=== PATIENT | male | born 1995 | race Caucasian/White ===

== ENCOUNTER 2023-01-14 17:26 | Inpatient (IN) | payer MEDICAID ==
[~2023-01-14] VITALS: Ht 177.8 cm; Wt 99.8 kg
[2023-01-14 18:01] VITALS: BP 148/80
--- NOTE | 2023-01-14 18:53 | NUR ---
PT C/O CHEST PAIN AND SOB X2 DAYS, BREATHING TACHYPNEIC AND TACHYCARDIC. IV INSERTED TO RIGHT AC #20 guage BLOOD DRAWN AND SENT TO LAB. PENDING FURTHER ORDERS.
[2023-01-14 19:10] LABS: BASOPHILS # (AUTO) 0.1 K/uL (0.00-0.22); BASOPHILS % (AUTO) 0.7 % (0.0-2.0); EOSINOPHILS % (AUTO) 0.3 % (0.0-4.0); HEMATOCRIT 37.7 % (36-52); HEMOGLOBIN 11.9 g/dL (12.0-18.0); LYMPHOCYTES # (AUTO) 1.5 K/uL (2.0-11.5); LYMPHOCYTES % (AUTO) 16.6 % (20.5-51.1); MEAN CORPUSCULAR HEMOGLOBIN 24 pg (27-31); MEAN CORPUSCULAR HGB CONC 32 g/dL (33-37); MONOCYTES # (AUTO) 1.1 K/uL (0.8-1.0); NEUTROPHILS # (AUTO) 6.4 K/uL (1.8-7.7); NEUTROPHILS % (AUTO) 70.4 % (42.2-75.2); PLATELET COUNT (AUTO) 281 K/uL (140-450); RED BLOOD CELL COUNT(AUTO) 4.89 MIL/uL (4.20-6.10); RED CELL DISTRIBUTION WIDTH 18.9 % (11.6-13.7); WHITE BLOOD COUNT (AUTO) 9.1 K/uL (4.8-10.8)
[2023-01-14 19:23] LABS: ALBUMIN 3.5 g/dL (3.4-5.0); ANION GAP 16.2 (8-16); CARBON DIOXIDE 20.3 mmol/L (21-32); CREATININE 1.1 mg/dL (0.6-1.3); POTASSIUM 4.5 mmol/L (3.5-5.1); TOTAL BILIRUBIN 1.9 mg/dL (0.0-1.0)
[2023-01-14] MEDS ORDERED: FUROSEMIDE 40 MG/4 ML VIAL IVP ONE (20:20)
--- NOTE | 2023-01-14 21:10 | NUR ---
Patient appears to be resting comfortably in bed. Vital Signs within normal limits. Respirations even and unlabored.
[2023-01-14] MEDS ORDERED: OMEP20EC11 PO (21:41)
[2023-01-14] MEDS ORDERED: FURO-570 PO (21:42)
[2023-01-14] MEDS ORDERED: LOSA100T2 PO (21:44)
[2023-01-14] MEDS ORDERED: METO-748 PO (21:44)
[2023-01-14] MEDS ORDERED: AZITHROMYCIN 500 MG in DEXTROSE 5% 250 ML IV ONE (21:45)
[2023-01-14] MEDS ORDERED: KEP500 PO (21:46)
--- NOTE | 2023-01-14 21:47 | NUR ---
jeffery swab to lab
[2023-01-14] MEDS ORDERED: AZITHROMYCIN 500 MG INJ VIAL IV ONE (22:53)
[2023-01-14] MEDS ORDERED: cefTRIAXone 1,000 MG VIAL ONE (22:55)
[2023-01-14 23:45] LABS: APPEARANCE,URINE CLEAR (CLEAR); BILIRUBIN,URINE NEGATIVE (NEGATIVE); BLOOD, URINE NEGATIVE (NEGATIVE); COLOR,URINE YELLOW (YELLOW); LEUKOCYTE ESTERASE ,URINE NEGATIVE (NEGATIVE); NITRITE, URINE NEGATIVE (NEGATIVE); UGLUCOSE NEGATIVE (NEGATIVE)
[2023-01-15] LABS: BARBITURATE, URINE NEGATIVE ng/ml (NEG <=200); BENZODIAZEPINE, URINE NEGATIVE ng/mL (NEG <=200); CANNABINOID, URINE NEGATIVE ng/mL (NEG <=50); COCAINE, URINE NEGATIVE ng/mL (NEG <=300); OPIATE, URINE NEGATIVE ng/mL (NEG <=2000); PHENCYCLIDINE SCREEN,URINE NEGATIVE ng/mL (NEG <=25)
--- NOTE | 2023-01-15 02:00 | NUR ---
Patient appears to be resting comfortably in bed. Vital Signs within normal limits. Respirations even and unlabored.
[2023-01-15] MEDS ORDERED: MORPHINE SULFATE 10 MG/ML VIAL IVP PRN (02:30)
[2023-01-15] MEDS ORDERED: MORPHINE SULFATE 2 MG/ML SYR IVP PRN ×2 (03:20→07:10)
--- NOTE | 2023-01-15 05:50 | NUR ---
C/O PAIN , MEDICATED ORDERED
--- NOTE | 2023-01-15 06:01 | NUR ---
MADE AWARE OF PT BEING IN A-FIB, ORDERED AN EKG. EKG READS A-FIB AT 123, MADE AWARE THAT ON OUR CREDIT CHECKER PT REACHES UP TO 160S WITH CHEST PAIN AND SOB. ORDERED 2 STANDING ORDERS FOR CARDIZEM 10MG IVP FOR AFIB. STATES IF BOTH DOSES DO NOT WORK, START A CARDIZEM DRIP AND UPGRADE TO ICU. ORDERS CARRIED OUT.
[2023-01-15] MEDS ORDERED: DILTIAZEM 25 MG/5 ML VIAL IVP ONE ×2 (06:05)
[2023-01-15] MEDS ORDERED: ALBUTEROL 0.083% 2.5 MG/3 ML NEBU INH PRN (07:05)
[2023-01-15] MEDS ORDERED: ONDANSETRON 4 MG/2 ML VIAL IVP PRN (07:10)
[2023-01-15] MEDS ORDERED: DOCUSATE SODIUM 100 MG GELCAP PO PRN (07:10)
[2023-01-15] MEDS ORDERED: ZOLPIDEM 10 MG TAB PO PRN (07:10)
[2023-01-15] MEDS ORDERED: MAG SULF 2000 MG/WATER PREMIX 50 ML IV PRN (07:10)
[2023-01-15] MEDS ORDERED: ACETAMINOPHEN 325 MG TAB PO PRN (07:10)
[2023-01-15] MEDS ORDERED: LORazepam 2 MG/ML VIAL IVP PRN (07:10)
[2023-01-15] MEDS ORDERED: POTASSIUM CHLORIDE 10 MEQ TABER PO PRN (07:10)
--- NOTE | 2023-01-15 07:30 | NUR ---
Pt asleep, resp rate 30's, SpO2 98-100% on O2 @ 2L nc. Afib 105 on the monitor
--- NOTE | 2023-01-15 08:30 | NUR ---
bedside echocardiogram in progress
[2023-01-15] MEDS: FUROSEMIDE 40 MG/4 ML VIAL IVP SCH ×2 (09:00→16:40)
--- NOTE | 2023-01-15 09:23 | NUR ---
PATIENT HAS BEEN SCREENED AND CATEGORIZED MODERATE NUTRITION RISK. PATIENT WILL BE SEEN WITHIN 3-5 DAYS OF ADMISSION. REVIEWED BY ZACHARIAH OLIVEROS RD
[2023-01-15] MEDS ORDERED: CRUSHER, PILL MC ONE (11:56)
[2023-01-15] MEDS: levETIRAcetam 500 MG TAB PO SCH ×2 (12:00→21:24)
[2023-01-15] MEDS: LOSARTAN 50 MG TAB PO SCH (12:02)
[2023-01-15] MEDS ORDERED: PIPERACILLIN/TAZOBACTAM 3.375 GM VIAL IV ONE ×2 (12:17→21:20)
[2023-01-15] MEDS: PIPERACILLIN/TAZOBACTAM 3.375 GM in DEXTROSE 5% 50 ML IV SCH ×2 (12:36→21:24)
--- NOTE | 2023-01-15 18:52 | NUR ---
pt ate 100% of dinner
[2023-01-15 20:45] VITALS: BP 106/70
--- NOTE | 2023-01-15 20:45 | NUR ---
PT ADMITTED AND ORIENTED TO ROOM 126a, FRON ED WITH DX OF CHF AND pna, a/O X4, ORIENTED TO ROOM AND CALL SYSTEM
--- NOTE | 2023-01-15 21:00 | NUR ---
PT ADMITTED FROM ED 01/15/23 AT 20:45, WITH DX OF chf EXACERBATION AND PNA, A/O X4, ON 02 3 L/MIN VIA NC. PT ORIENTED TO ROOM AND CALL SYTEM, AWARE OF ALL ORDERS . CONT. WITH PLAN OF CARE
--- NOTE | 2023-01-15 21:52 | NUR ---
Patient will be admitted to care of EXECERBATION OF CHF AND PNA. Admited to TELEMETY . Will go to room 126. Belongings list completed. Report to LOUISE.
[2023-01-16] VITALS: BP 105/58
[2023-01-16 04:00] VITALS: BP 122/68
[2023-01-16] MEDS ORDERED: PIPERACILLIN/TAZOBACTAM 3.375 GM VIAL IV ONE (05:45)
[2023-01-16] MEDS: PIPERACILLIN/TAZOBACTAM 3.375 GM in DEXTROSE 5% 50 ML IV SCH ×3 (05:49→21:22)
[2023-01-16 06:23] LABS: ANION GAP 18.4 (8-16); CARBON DIOXIDE 23.7 mmol/L (21-32); CREATININE 1.2 mg/dL (0.6-1.3); POTASSIUM 4.1 mmol/L (3.5-5.1)
[2023-01-16 06:49] LABS: BASOPHILS # (AUTO) 0.1 K/uL (0.00-0.22); BASOPHILS % (AUTO) 1.5 % (0.0-2.0); EOSINOPHILS # (AUTO) 0.4 K/uL (0-0.4); EOSINOPHILS % (AUTO) 5.5 % (0.0-4.0); HEMATOCRIT 37.5 % (36-52); HEMOGLOBIN 11.7 g/dL (12.0-18.0); LYMPHOCYTES # (AUTO) 1.8 K/uL (2.0-11.5); LYMPHOCYTES % (AUTO) 24.1 % (20.5-51.1); MEAN CORPUSCULAR HEMOGLOBIN 24 pg (27-31); MEAN CORPUSCULAR HGB CONC 31 g/dL (33-37); MEAN CORPUSCULAR VOLUME 76.3 fL (80-94); MONOCYTES # (AUTO) 0.9 K/uL (0.8-1.0); MONOCYTES % (AUTO) 11.5 % (1.7-9.3); NEUTROPHILS # (AUTO) 4.4 K/uL (1.8-7.7); NEUTROPHILS % (AUTO) 57.4 % (42.2-75.2); PLATELET COUNT (AUTO) 272 K/uL (140-450); RED BLOOD CELL COUNT(AUTO) 4.91 MIL/uL (4.20-6.10); RED CELL DISTRIBUTION WIDTH 19.2 % (11.6-13.7); WHITE BLOOD COUNT (AUTO) 7.7 K/uL (4.8-10.8)
--- NOTE | 2023-01-16 07:00 | NUR ---
CRITICAL VALUE RESULT, NA LEVEL 156 , REPORTED TO DR RODRÍGUEZ DESIGN ARCHITECT. NO NEW ORDERS AT THIS TIME. REPORT TO INCOMING NURSE.
--- NOTE | 2023-01-16 07:12 | NUR ---
ASSUMED CONTINUITY OF CARE. INITIAL ASSESSMENT DONE. KEEP COMFORTABLE ON BED. SEIZURE AND FALL PRECAUTION APPLIED. CALL LIGHT WITHIN REACH.
[2023-01-16 08:00] VITALS: BP 107/78
[2023-01-16] MEDS: levETIRAcetam 500 MG TAB PO SCH ×2 (09:09→21:22)
[2023-01-16] MEDS: LOSARTAN 50 MG TAB PO SCH (09:09)
[2023-01-16] MEDS: FUROSEMIDE 40 MG/4 ML VIAL IVP SCH ×2 (09:24→18:05)
[2023-01-16 12:00] VITALS: BP 101/68
[2023-01-16 16:00] VITALS: BP 116/69
--- NOTE | 2023-01-16 19:19 | NUR ---
BEDSIDE REPORT GIVEN TO STORMY HEBERT. IN STABLE CONDITION.
[2023-01-16 20:00] VITALS: BP 112/69
--- NOTE | 2023-01-16 20:00 | NUR ---
NURSE NOTES REPORT OBTAINED FROM [facility] NURSE LITA MARTINEZ AND THIS NURSE ASSUMED CARE OF PATIENT. VSS. NO C/O PAIN OR DISCOMFORT. VOIDED IN URINAL. TELE MONITOR WITH UNCONTROLLED ATRIAL FIB, BBB- BPM 124.
[2023-01-16] MEDS: APIXABAN 2.5 MG TAB PO SCH (21:24)
[2023-01-17] VITALS: BP 98/68
--- NOTE | 2023-01-17 | NUR ---
NURSE NOTES VSS, AFEB. NO C/O PAIN OR DISCOMFORT. TELE WITH UNCONTROLLED ATRIAL FIB- BBB. BPM- 132. QRS- .12-.14
[2023-01-17 04:00] VITALS: BP 87/61
--- NOTE | 2023-01-17 04:00 | NUR ---
NURSE NOTES VSS. AFEB. TELE WITH CONTROLLED AFIB 97. NO C/O PAIN OR DISCOMFORT. PATIETN ASKED FOR FOOD NUMEROUS TIMES. VOIDS WELL IN URINAL.
[2023-01-17] MEDS: PIPERACILLIN/TAZOBACTAM 3.375 GM in DEXTROSE 5% 50 ML IV SCH ×2 (04:38→14:01)
[2023-01-17 06:27] LABS: BASOPHILS # (AUTO) 0.1 K/uL (0.00-0.22); BASOPHILS % (AUTO) 1.4 % (0.0-2.0); EOSINOPHILS # (AUTO) 0.4 K/uL (0-0.4); EOSINOPHILS % (AUTO) 5.4 % (0.0-4.0); HEMOGLOBIN 12.7 g/dL (12.0-18.0); LYMPHOCYTES # (AUTO) 1.5 K/uL (2.0-11.5); LYMPHOCYTES % (AUTO) 22.6 % (20.5-51.1); MEAN CORPUSCULAR HEMOGLOBIN 24 pg (27-31); MEAN CORPUSCULAR HGB CONC 32 g/dL (33-37); MEAN CORPUSCULAR VOLUME 75.4 fL (80-94); MONOCYTES # (AUTO) 0.8 K/uL (0.8-1.0); MONOCYTES % (AUTO) 12.5 % (1.7-9.3); NEUTROPHILS # (AUTO) 3.8 K/uL (1.8-7.7); NEUTROPHILS % (AUTO) 58.1 % (42.2-75.2); PLATELET COUNT (AUTO) 339 K/uL (140-450); RED BLOOD CELL COUNT(AUTO) 5.31 MIL/uL (4.20-6.10); RED CELL DISTRIBUTION WIDTH 18.5 % (11.6-13.7); WHITE BLOOD COUNT (AUTO) 6.6 K/uL (4.8-10.8)
[2023-01-17 06:42] LABS: ANION GAP 12.5 (8-16); CREATININE 1.2 mg/dL (0.6-1.3); POTASSIUM 3.5 mmol/L (3.5-5.1)
--- NOTE | 2023-01-17 07:30 | NUR ---
NURSE REPORT REPORT GIVEN TO [facility] NURSE MCKAY TO ASSUME CARE OF PATIENT. ALL QUESTIONS ANSWERED. STORMY HEATON RN
[2023-01-17 08:00] VITALS: BP 115/69
[2023-01-17] MEDS ORDERED: METOPROLOL SUCCINATE 50 MG TABER PO SCH (09:00)
[2023-01-17] MEDS: FUROSEMIDE 40 MG/4 ML VIAL IVP SCH (10:13)
[2023-01-17] MEDS: levETIRAcetam 500 MG TAB PO SCH (10:14)
[2023-01-17] MEDS: LOSARTAN 50 MG TAB PO SCH (10:14)
[2023-01-17] MEDS: APIXABAN 2.5 MG TAB PO SCH (10:17)
[2023-01-17 12:00] VITALS: BP 112/85
[2023-01-17] MEDS ORDERED: ALBU0.0912 IH (17:21)
[2023-01-17] MEDS ORDERED: SPIMDI INH (17:24)
[2023-01-17 17:53] VITALS: BP 100/70
--- NOTE | 2023-01-17 18:47 | NUR ---
patient dc home, provided education regarding disease process, symptom mgt and when to seek medical attention, iv in rfa dc with cath intact, patient taken to lobby by rn and transported home via private auto
--- NOTE | 2023-01-21 13:15 | NUR ---
DC PLANNING: RECEIVED A CALL FROM EVARISTO CROFT [phone] SPOKE WITH CLARA HANDY REQUESTING TO PUT HER NAME ON THE DC PLANER TO FOLLOW UP . PER CLARA SHE MADE F/U APPOINTMENT WITH PT'S PCP.
== END 2023-01-17 18:35 | disposition home or self-care (01) | DRG 720 ==
LOC: MED 17:26 → MTU 01-15 02:32 → MMU 01-15 19:46
PROVIDERS: ADMIT Family Medicine; ATTEND Family Medicine
DX: A41.9 Sepsis, unspecified organism (principal); J96.00 Acute respiratory failure, unspecified whether with hypoxia or hypercapnia; I50.43 Acute on chronic combined systolic (congestive) and diastolic (congestive) heart failure; J18.9 Pneumonia, unspecified organism; I42.0 Dilated cardiomyopathy; I11.0 Hypertensive heart disease with heart failure; R56.9 Unspecified convulsions; I48.91 Unspecified atrial fibrillation; F15.90 Other stimulant use, unspecified, uncomplicated; Z20.822 Contact with and (suspected) exposure to COVID-19
CPT/HCPCS: 36415; 71045; 80048; 80053; 80305; 81003; 83735; 83880; 84484; 85025; 87040; 87081; 93005; 96365; 96368; 96375; 99285; G0482; J0456; J0696; J1940; J2060; J2270; J2543; J3475; J3490; J7060; Q0092

== ENCOUNTER 2023-03-04 07:42 | Inpatient (IN) | payer MEDICAID ==
[~2023-03-04] VITALS: Ht 188 cm; Wt 113.4 kg
[~2023-03-04 07:42] MED LIST: ALBU0.0912 IH; FURO-570 PO; KEP500 PO; LOSA100T2 PO; METO-748 PO; OMEP20EC11 PO; SPIMDI INH
--- NOTE | 2023-03-04 07:55 | NUR ---
Patient ambulated to bed 3.
[2023-03-04 07:56] VITALS: BP 120/80
[2023-03-04] MEDS ORDERED: METOPROLOL 5 MG/5 ML VIAL IVP ONE ×2 (08:20→09:30)
[2023-03-04 08:43] LABS: BASOPHILS # (AUTO) 0.1 K/uL (0.00-0.22); BASOPHILS % (AUTO) 1.2 % (0.0-2.0); EOSINOPHILS # (AUTO) 0.1 K/uL (0-0.4); EOSINOPHILS % (AUTO) 1.9 % (0.0-4.0); HEMATOCRIT 36.5 % (36-52); HEMOGLOBIN 11.3 g/dL (12.0-18.0); LYMPHOCYTES # (AUTO) 1.5 K/uL (2.0-11.5); LYMPHOCYTES % (AUTO) 21.2 % (20.5-51.1); MEAN CORPUSCULAR HEMOGLOBIN 23 pg (27-31); MEAN CORPUSCULAR HGB CONC 31 g/dL (33-37); MEAN CORPUSCULAR VOLUME 74.2 fL (80-94); MONOCYTES # (AUTO) 0.7 K/uL (0.8-1.0); MONOCYTES % (AUTO) 9.7 % (1.7-9.3); NEUTROPHILS # (AUTO) 4.5 K/uL (1.8-7.7); PLATELET COUNT (AUTO) 283 K/uL (140-450); RED BLOOD CELL COUNT(AUTO) 4.92 MIL/uL (4.20-6.10); RED CELL DISTRIBUTION WIDTH 21.8 % (11.6-13.7); WHITE BLOOD COUNT (AUTO) 6.9 K/uL (4.8-10.8)
[2023-03-04 09:05] LABS: ALBUMIN 3.2 g/dL (3.4-5.0); ANION GAP 15.4 (8-16); CARBON DIOXIDE 22.8 mmol/L (21-32); CREATININE 1.2 mg/dL (0.6-1.3); POTASSIUM 3.2 mmol/L (3.5-5.1); TOTAL BILIRUBIN 1.7 mg/dL (0.0-1.0)
[2023-03-04 09:08] LABS: THYROID STIMULATING HORMONE 4.84 uIU/mL (0.34-3.74)
[2023-03-04] MEDS ORDERED: POTASSIUM CHLORIDE 10 MEQ TABER PO ONE (09:55)
[2023-03-04] MEDS ORDERED: FUROSEMIDE 100 MG/10 ML VIAL IVP ONE (09:55)
--- NOTE | 2023-03-04 10:00 | NUR ---
IN BED STILL A LITTLE RESTLESS, STILL WITH LEG PAIN FROM SWELLING, FAST HEART RATE IMPROVING.
[2023-03-04 10:52] LABS: BARBITURATE, URINE NEGATIVE ng/ml (NEG <=200); BENZODIAZEPINE, URINE NEGATIVE ng/mL (NEG <=200); CANNABINOID, URINE NEGATIVE ng/mL (NEG <=50); COCAINE, URINE NEGATIVE ng/mL (NEG <=300); OPIATE, URINE NEGATIVE ng/mL (NEG <=2000); PHENCYCLIDINE SCREEN,URINE NEGATIVE ng/mL (NEG <=25)
[2023-03-04] MEDS ORDERED: DOCUSATE SODIUM 100 MG GELCAP PO PRN (11:10)
[2023-03-04] MEDS ORDERED: POTASSIUM CHLORIDE 10 MEQ TABER PO PRN (11:10)
[2023-03-04] MEDS ORDERED: ACETAMINOPHEN 325 MG TAB PO PRN (11:10)
[2023-03-04] MEDS ORDERED: guaiFENesin DM 200/20 MG-10 ML 10 ML UDC PO PRN (11:10)
[2023-03-04] MEDS ORDERED: ONDANSETRON 4 MG/2 ML VIAL IM/IVP PRN (11:10)
[2023-03-04] MEDS: levETIRAcetam 500 MG TAB PO SCH ×2 (11:20→21:00)
[2023-03-04] MEDS ORDERED: LOSARTAN 50 MG TAB PO SCH (11:20)
[2023-03-04] MEDS ORDERED: METOPROLOL SUCCINATE 100 MG PO SCH (11:20)
[2023-03-04 11:50] LABS: CHOL/HDL RATIO 4.6 (1-4.5); FREE T4 (FREE THYROXINE) 1.31 ng/dL (0.76-1.46); THYROID STIMULATING HORMONE 3.93 uIU/mL (0.34-3.74)
[2023-03-04 12:02] LABS: MAGNESIUM 1.7 mg/dL (1.8-2.4); PHOSPHORUS 4.7 mg/dL (2.5-4.9)
[2023-03-04] MEDS: METOPROLOL SUCCINATE 50 MG TABER PO SCH (12:25)
--- NOTE | 2023-03-04 12:30 | NUR ---
DIURESING PER URINAL POST MEDS. ABLE TO TOLERATE MID FOWLERS IN BED.
--- NOTE | 2023-03-04 13:22 | NUR ---
EATING PER LUNCH MEAL TRAY, TOLERATING WITHOUT SOB. "I BROUGHT SOME SNACKS FOR MYSELF TOO"
--- NOTE | 2023-03-04 13:58 | NUR ---
Patient will be admitted to care of DR CAVAZOS . Admited to TELE. Will go to room 111. Belongings list completed. Report to
[2023-03-04 14:00] VITALS: BP 121/80
--- NOTE | 2023-03-04 14:00 | NUR ---
RECEIVED REPORT FROM ER NURSE FOR CONTINUITY OF CARE. PT WAS STABLE UPON TRANSPORT ON A GURNEY. PT IS A&OX4, SKIN INTACT, ON 1L NC STATING AT 98%, AND WALKS WITH A WALKER TO AND FROM THE RESTROOM. PT HAS A LIFE VEST DEFIBRILLATOR ON. PT HAS A 20G IN HIS R FOREARM THAT IS PATENT AND INTACT. PT IS ON A CARDIAC DIET. ALL SAFETY MEASURES IN PLACE INCLUDING BED IN LOW POSITION AND CALL LIGHT WITHIN REACH. PT MONITORING AND CARE RESUMED.
[2023-03-04 16:00] VITALS: BP 119/73
--- NOTE | 2023-03-04 19:31 | NUR ---
ENDORSED PTS TO TRADE ECONOMIST NURSE FOR CONTINUITY OF CARE. PT STABLE AT THIS TIME.
--- NOTE | 2023-03-04 19:32 | NUR ---
RECEIVED SHIFT REPORT FOR CONTINUITY OF CARE FROM SUSSY CAMPOS, PATIENT WAS COMPLAINING OF SOB. OXYGEN SATURATION WAS WITHIN NORMAL RANGE. RT WAS CALLED FOR POSSIBLE TREATMENT. MD WAS NOTIFIED AND NEW ORDERS FOR MORPHINE. PATIENT WAS GIVEN NORCO TO RELIEVE THE PAIN. NURSING WILL MONITOR FOR EFFECTIVENESS. PATIENT WAS GIVEN CALL LIGHT WITHIN REACH. SIDE RAILS UP X 2. [email or web address]
[2023-03-04] MEDS: HYDROcodone/APAP 7.5/325 MG 1 TAB PO PRN (19:43)
[2023-03-04 20:00] VITALS: BP 121/75
--- NOTE | 2023-03-04 20:00 | NUR ---
Patient's Plan of Care was discussed and reviewed with OSTRICH FARMER: GRAY LEÓN
[2023-03-04] MEDS: FUROSEMIDE 40 MG/4 ML VIAL IVP SCH (21:40)
--- NOTE | 2023-03-04 22:25 | NUR ---
PATIENT NOTED IN BED ASLEEP WITH HEAD OF BED ELEVATED. AFTER NORCO WAS GIVEN PATIENT WAS AVLE TO CALM DOWN AND SPEAK WITH NURSING. NURSING EDUCATED PAIN NOT TO EAT ITEMS THAT CAN PRODUCE MUCUS BECAUSE HIS COMPLAINT WAS CHEST PAIN BUT NURSING HEARD THE MUCUS IN THE THROAT AND MOUTH. ALL NEEDS MET AT THIS TIME. SIDE RAILS UP CALL LIGHT WITHIN REACH. [email or web address]
[2023-03-05] VITALS: BP 103/53
--- NOTE | 2023-03-05 00:05 | NUR ---
PATIENT NOTED WITH MASK FOR BREATHING AND OXYGEN INCREASED TO 7 LITERS. PATIENT DESATURATED TO 86%. RT WAS CALLED AND RECOMMEND THE MASK BECAUSE PATIENT BREATHS WITH HIS MOUTH OPEN. PATIENT IS ON CONTINUOUS PULSE OX FOR OXYGEN SATURATION. [email or web address]
[2023-03-05] MEDS ORDERED: DIGOXIN 0.25 MG/ML AMP IV SCH (01:25)
--- NOTE | 2023-03-05 02:51 | NUR ---
SPOKE WITH [facility] TO VERIFY THE MEDICATION FOR NURSING TO GIVE. [email or web address]
--- NOTE | 2023-03-05 03:12 | NUR ---
UNABLE TO GIVE DIGOXIN D/T PATIENT'S BLOOD PRESSURE AT 0000 WAS NOTED AT 103/53 HR OF 86. CURRENTLY BLOOD PRESSURE WAS NOTED AT 107/68 HR 78. [email or web address]
[2023-03-05 04:00] VITALS: BP 124/71
[2023-03-05 06:51] LABS: BASOPHILS # (AUTO) 0.1 K/uL (0.00-0.22); BASOPHILS % (AUTO) 1.8 % (0.0-2.0); EOSINOPHILS # (AUTO) 0.1 K/uL (0-0.4); EOSINOPHILS % (AUTO) 2.3 % (0.0-4.0); HEMATOCRIT 38.7 % (36-52); LYMPHOCYTES % (AUTO) 31.5 % (20.5-51.1); MEAN CORPUSCULAR HEMOGLOBIN 23 pg (27-31); MEAN CORPUSCULAR HGB CONC 31 g/dL (33-37); MEAN CORPUSCULAR VOLUME 74.6 fL (80-94); MONOCYTES # (AUTO) 0.7 K/uL (0.8-1.0); MONOCYTES % (AUTO) 11.2 % (1.7-9.3); NEUTROPHILS # (AUTO) 3.4 K/uL (1.8-7.7); NEUTROPHILS % (AUTO) 53.2 % (42.2-75.2); PLATELET COUNT (AUTO) 293 K/uL (140-450); RED BLOOD CELL COUNT(AUTO) 5.19 MIL/uL (4.20-6.10); RED CELL DISTRIBUTION WIDTH 21.5 % (11.6-13.7); WHITE BLOOD COUNT (AUTO) 6.4 K/uL (4.8-10.8)
[2023-03-05 06:55] LABS: CARBON DIOXIDE 25.6 mmol/L (21-32); CREATININE 1.3 mg/dL (0.6-1.3); POTASSIUM 3.6 mmol/L (3.5-5.1)
--- NOTE | 2023-03-05 07:10 | NUR ---
RECEIVED REPORT FROM NECK FITTER NURSE FOR CONTINUITY OF CARE. PT STABLE AT THIS TIME.
--- NOTE | 2023-03-05 07:24 | NUR ---
ENDORSE PATIENT CARE TO SUSSY RN FOR CONTINUITY OF CARE, PATIENT WAS STABLE AT CHANGE OF SHIFT. [email or web address]
[2023-03-05 08:00] VITALS: BP 110/71
[2023-03-05 08:07] LABS: T4 (THYROXINE) 6.6 ug/dL (4.5-12.0)
--- NOTE | 2023-03-05 09:29 | NUR ---
PATIENT HAS BEEN SCREENED AND CATEGORIZED MODERATE NUTRITION RISK. PATIENT WILL BE SEEN WITHIN 3-5 DAYS OF ADMISSION. ZACHARIAH OLIVEROS RD
[2023-03-05] MEDS: FUROSEMIDE 40 MG/4 ML VIAL IVP SCH ×2 (09:31→21:00)
[2023-03-05] MEDS: PANTOPRAZOLE 40 MG TABEC PO SCH (09:32)
[2023-03-05] MEDS: levETIRAcetam 500 MG TAB PO SCH ×2 (09:32→21:28)
[2023-03-05] MEDS: LOSARTAN 25 MG TAB PO SCH (09:32)
[2023-03-05] MEDS: METOPROLOL SUCCINATE 50 MG TABER PO SCH (09:32)
[2023-03-05] MEDS: APIXABAN 2.5 MG TAB PO SCH ×2 (09:33→21:28)
--- NOTE | 2023-03-05 10:52 | NUR ---
dc planning MET WITH PT AT BEDSIDE TO COMPLETE ASSESSMENT, HOWEVER, PT STRUGGLED TO STAY AWAKE LONG ENOUGH TO COMPLETE ASSESSMENT. PT PROVIDED WITH PERMISSION TO GATHER COLLAT INFO FROM PTS MOTHER , SANA. PT CONFIRMED TELEPHONE NUMBER. OUTREACHED TO PTS MOTHER SANA, HOWEVER NO ANSWER. MESSAGE WAS LEFT REQUESTING A RETURN PHONE CALL, CONTACT INFO LEFT ON VM. Addendum: 03/08/23 at 1203 by Rashmi MACHADO SECOND ATTEMPT MADE TO COMPLETE ASSESSMENT HOWEVER, PT IN AND OUT OF SLEEP AND STRUGGLES TO COMPLETE ASSESSMENT. OUTREACHED TO PTS MOTHER HOWEVER, NO ANSWER.
[2023-03-05 11:13] LABS: APPEARANCE,URINE CLEAR (CLEAR); BILIRUBIN,URINE NEGATIVE (NEGATIVE); BLOOD, URINE NEGATIVE (NEGATIVE); COLOR,URINE YELLOW (YELLOW); LEUKOCYTE ESTERASE ,URINE NEGATIVE (NEGATIVE); NITRITE, URINE NEGATIVE (NEGATIVE); UGLUCOSE NEGATIVE (NEGATIVE)
--- NOTE | 2023-03-05 11:45 | NUR ---
ENTERED PTS ROOM TO HIS MASK NOT ON HIS FACE AND HIM STATING AT 78%. REPLACED MASK AND PT INCREASE QUICKLY TO 97%.
[2023-03-05 12:00] VITALS: BP 109/73
[2023-03-05] MEDS: HYDROcodone/APAP 7.5/325 MG 1 TAB PO PRN (12:16)
[2023-03-05 16:00] VITALS: BP 117/74
--- NOTE | 2023-03-05 16:45 | NUR ---
PASSED BY PTS ROOM TO HIM STANDING WALKING BACK FROM THE BATHROOM AND I ASKED IF HE WAS OKAY; PT STATED THAT HE NEEDED HELP GETTING BACK INTO BED. I ASSISTED PT BACK TO HIS BED AND BACK ON O2. I LOWERED THE HEAD OF THE BED SO HE COULD LAY DOWN AND GET COMFORTABLE. PT STATING AT 91%.
--- NOTE | 2023-03-05 19:29 | NUR ---
ENDORSED PTS TO MATTRESS AND BOXSPRINGS SUPERVISOR NURSE FOR CONTINUITY OF CARE. PT STABLE AT THIS TIME.
--- NOTE | 2023-03-05 19:30 | NUR ---
RECEIVED ENDORSEMENT FROM SUSSY CAMPOS, PATIENT WAS ASLEEP AND STABLE DURING SHIFT REPORT. PATIENT WAS ON CONTINUOUS OXYGEN MONITORING AND AT 100% WITH MASK AT 10 LITERS. NO S/S OF PAIN/DIS COMFORT. NO S/S OF RESPIRATORY DISTRESS. ALL NEEDS MET. SIDE RAILS UP X 2. CALL LIGHT WITHIN REACH [email or web address]
[2023-03-05 20:00] VITALS: BP 126/74
[2023-03-05] MEDS: ZOLPIDEM 5 MG TAB PO PRN (22:54)
--- NOTE | 2023-03-05 23:02 | NUR ---
Patient's Plan of Care was discussed and reviewed with BREWING DIRECTOR: MORENO
--- NOTE | 2023-03-05 23:21 | NUR ---
PATIENT REQUESTED SLEEPING PILL TO SLEEP. NURSING GAVE AND INEFFECTIVE BECAUSE PATIENT IS COMPLAINING OF PAIN AND YELLS AND GRUNTS. OXYGEN SATURATION REMAIN OVER 100%. NURSING WILL TAKE VITAL SIGNS AT MIDNIGHT TO GIVE PAIN MAEDICATION IF PATIENT IS WITHIN RANGE. [email or web address]
--- NOTE | 2023-03-05 23:49 | NUR ---
COVERING RN WAS INFORMED OF PATIENTS'S BLOOD PRESSURE NOTED AT 129/89 AND HEART 70 WITH 96%. PAIN MEDICATION WAS GIVEN. [email or web address]
[2023-03-05] MEDS: MORPHINE SULFATE 2 MG/ML SYR IVP PRN (23:51)
[2023-03-06] VITALS: BP 129/89
--- NOTE | 2023-03-06 00:25 | NUR ---
PATIENT NOTED IN BE ASLEEP. SIDE RAILS UP AND CALL LIGHT WITHIN REACH FOR ALL ASSISTANCE. NO NOTED S/S OF PAIN/DISCOMFORT. NO NOTED S/S OF RESPIRATORY DISTRESS. [email or web address]
--- NOTE | 2023-03-06 02:45 | NUR ---
PATIENT NOTED IN BE ASLEEP. PRN NOTED FROM MIDNIGHT EFFECTIVE AND NO NOTED SOFIE EFFECTS. SIDE RAILS UP AND CALL LIGHT WITHIN REACH FOR ALL ASSISTANCE. NO NOTED S/S OF PAIN/DISCOMFORT. NO NOTED S/S OF RESPIRATORY DISTRESS. [email or web address]
[2023-03-06 04:00] VITALS: BP 108/67
[2023-03-06 06:20] LABS: BASOPHILS # (AUTO) 0.1 K/uL (0.00-0.22); BASOPHILS % (AUTO) 0.8 % (0.0-2.0); EOSINOPHILS % (AUTO) 0.3 % (0.0-4.0); HEMATOCRIT 37.1 % (36-52); HEMOGLOBIN 11.5 g/dL (12.0-18.0); LYMPHOCYTES # (AUTO) 1.6 K/uL (2.0-11.5); LYMPHOCYTES % (AUTO) 20.8 % (20.5-51.1); MEAN CORPUSCULAR HEMOGLOBIN 23 pg (27-31); MEAN CORPUSCULAR HGB CONC 31 g/dL (33-37); MEAN CORPUSCULAR VOLUME 73.8 fL (80-94); MONOCYTES # (AUTO) 0.9 K/uL (0.8-1.0); MONOCYTES % (AUTO) 12.2 % (1.7-9.3); NEUTROPHILS % (AUTO) 65.9 % (42.2-75.2); PLATELET COUNT (AUTO) 287 K/uL (140-450); RED BLOOD CELL COUNT(AUTO) 5.03 MIL/uL (4.20-6.10); RED CELL DISTRIBUTION WIDTH 21.5 % (11.6-13.7); WHITE BLOOD COUNT (AUTO) 7.7 K/uL (4.8-10.8)
[2023-03-06 06:45] LABS: ANION GAP 14.3 (8-16); CARBON DIOXIDE 24.9 mmol/L (21-32); CREATININE 1.3 mg/dL (0.6-1.3); POTASSIUM 4.2 mmol/L (3.5-5.1)
--- NOTE | 2023-03-06 07:25 | NUR ---
ENDORSED PATIENT TO ESTRADA RN (REGISTRY) FOR CONTINUITY OF CARE. PATIENT WAS STABLE DURING SHIFT CHANGE. [email or web address]
[2023-03-06 08:00] VITALS: BP 98/62
--- NOTE | 2023-03-06 08:00 | NUR ---
pt A/Ox4,sleeping well in bed,afib hr 90-100,BP decreased to 98/62 needs attended,call light & personal items within pt reach safety maintained.
[2023-03-06] MEDS: LOSARTAN 25 MG TAB PO SCH (09:00)
[2023-03-06] MEDS: PANTOPRAZOLE 40 MG TABEC PO SCH (09:44)
[2023-03-06] MEDS: APIXABAN 2.5 MG TAB PO SCH ×2 (09:44→20:29)
[2023-03-06] MEDS: levETIRAcetam 500 MG TAB PO SCH ×2 (09:45→20:32)
[2023-03-06 12:00] VITALS: BP 115/78
--- NOTE | 2023-03-06 12:00 | NUR ---
pt keeps taking off O2 mask,sat 88% without O2 on,applied O2 2L/NC sat up to 93%,hourly rounds made,safety maintained.
[2023-03-06] MEDS: METOPROLOL SUCCINATE 50 MG TABER PO SCH (12:36)
[2023-03-06] MEDS: FUROSEMIDE 40 MG/4 ML VIAL IVP SCH ×2 (12:37→21:04)
[2023-03-06 16:00] VITALS: BP 113/75
[2023-03-06] MEDS: MORPHINE SULFATE 2 MG/ML SYR IVP PRN (17:22)
--- NOTE | 2023-03-06 18:58 | NUR ---
vss,pt c/o chest pain and give morphine 2mg IV as prn order pt resting well in bed after morphine given.will endorse report to oncoming pm shift staff.
--- NOTE | 2023-03-06 19:25 | NUR ---
RECEIVED PATIENT LYING ON THE BED, ON O2 @2LPM NC, DENIES SOB, DENIES PAIN, PATIENT IS AWAKE, ALERT AND ORIENTED. CALL LIGHT WITHIN REACH.
[2023-03-06 20:00] VITALS: BP 125/71
--- NOTE | 2023-03-06 21:05 | NUR ---
SCHEDULED MEDICATIONS GIVEN ORDERED. PATIENT ON O2 @2LPM NC, NO SIGNS OF DISTRESS NOTED. CALL LIGHT WITHIN REACH.
[2023-03-07] VITALS: BP 100/49
--- NOTE | 2023-03-07 00:28 | NUR ---
PATIENT GIVEN PRN TYLENOL, [id number], NO C/O PAIN UPON ASSESSMENT, IN NO ACUTE DISTRESS, ON O2 @2LPM NC. WILL CONTINUE TO MONITOR THE PATIENT. CALL LIGHT WITHIN REACH.
--- NOTE | 2023-03-07 01:30 | NUR ---
PATIENT'S TEMP IS 97.8, NO SIGNS OF DISTRESS NOTED. CALL LIGHT WITHIN REACH, BED IN LOW AND LOCKED POSITION.
[2023-03-07 04:00] VITALS: BP 126/68
[2023-03-07 06:21] LABS: HEMATOCRIT 36.8 % (36-52); HEMOGLOBIN 11.5 g/dL (12.0-18.0); MEAN CORPUSCULAR HEMOGLOBIN 23 pg (27-31); MEAN CORPUSCULAR HGB CONC 31 g/dL (33-37); MEAN CORPUSCULAR VOLUME 73.6 fL (80-94); PLATELET COUNT (AUTO) 279 K/uL (140-450); RED BLOOD CELL COUNT(AUTO) 5.01 MIL/uL (4.20-6.10); RED CELL DISTRIBUTION WIDTH 21.3 % (11.6-13.7); WHITE BLOOD COUNT (AUTO) 7.7 K/uL (4.8-10.8)
[2023-03-07 06:46] LABS: ANION GAP 14.9 (8-16); CARBON DIOXIDE 25.8 mmol/L (21-32); CREATININE 1.3 mg/dL (0.6-1.3); POTASSIUM 3.7 mmol/L (3.5-5.1)
--- NOTE | 2023-03-07 07:10 | NUR ---
ENDORSED TO DAY NURSE FOR CONTINUITY OF CARE. PATIENT IN STABLE CONDITION.
[2023-03-07 07:57] LABS: LYMPHOCYTES % (MANUAL) 20 % (20-46)
[2023-03-07 07:58] LABS: MONOCYTES % (MANUAL) 10 % (5-12)
[2023-03-07 08:00] VITALS: BP 90/63
--- NOTE | 2023-03-07 08:00 | NUR ---
PT A/OX3,LETHARGIC,SLEEPING QUIETLY IN BED,BP 90/63,ON O2 2L/NC SAT 99%,NEEDS ATTENDED,CALL LIGHT & PERSONAL ITEMS WITHIN PT REACH SAFETY MAINTAINED
[2023-03-07] MEDS: FUROSEMIDE 40 MG/4 ML VIAL IVP SCH ×2 (09:00→20:16)
[2023-03-07] MEDS: METOPROLOL SUCCINATE 50 MG TABER PO SCH (09:00)
[2023-03-07] MEDS: LOSARTAN 25 MG TAB PO SCH (09:00)
[2023-03-07] MEDS: PANTOPRAZOLE 40 MG TABEC PO SCH (10:02)
[2023-03-07] MEDS: levETIRAcetam 500 MG TAB PO SCH ×2 (10:02→20:17)
[2023-03-07] MEDS: APIXABAN 2.5 MG TAB PO SCH ×2 (10:04→20:18)
[2023-03-07 12:00] VITALS: BP 91/64
--- NOTE | 2023-03-07 12:00 | NUR ---
BP REMAINS LOW 91/64,UNABLE TO ADMINISTER LASIX AND TOPROL D/T HYPOTENTION, CALLED AND NOTIFIED.
[2023-03-07 16:00] VITALS: BP 115/85
--- NOTE | 2023-03-07 16:00 | NUR ---
BP UP TO 115/85, CAME AND SEEN PT,ORDERS RECEIVED TO START MIDODRINE AND DIAMOX,MEDS GIVEN AND CARRIED OUT PER ORDER CONTINUE TO MONITOR PT.
[2023-03-07] MEDS: acetaZOLAMIDE sodium 500 MG VIAL IVP SCH (17:00)
[2023-03-07] MEDS: MIDODRINE 5 MG TAB PO SCH ×2 (17:00→20:18)
--- NOTE | 2023-03-07 19:30 | NUR ---
RECEIVED PATIENT SITTING ON THE BED, ON O2 @2LPM NC, NO SIGNS OF DISTRESS NOTED, DENIES PAIN AT THIS TIME. FAMILY AT BEDSIDE. CALL LIGHT WITHIN REACH.
[2023-03-07 20:00] VITALS: BP 123/72
--- NOTE | 2023-03-07 20:18 | NUR ---
SCHEDULED MEDICATIONS GIVEN ORDERED. MIDODRINE NOT GIVEN, BP 123/72. WILL CONTINUE TO MONITOR THE PATIENT.
--- NOTE | 2023-03-07 22:16 | NUR ---
EMPTIED PATIENT'S URINAL, URINE LIGHT YELLOW IN COLOR, NO ODOR NOTED. PATIENT IS ASLEEP, IN NO ACUTE DISTRESS, HOB ELEVATED, ON O2 @2LPM NC, CALL LIGHT WITHIN REACH.
[2023-03-08] VITALS: BP 100/62
--- NOTE | 2023-03-08 00:10 | NUR ---
VITALS TAKEN T 97.0, P 65, BP 100/62, RESP 20 , O2 SATS 100% ON 2LPM NC. PATIENT IN NO ACUTE DISTRESS, CALL LIGHT WITHIN REACH.
[2023-03-08 04:15] VITALS: BP 117/70
[2023-03-08] MEDS: FUROSEMIDE 40 MG/4 ML VIAL IVP SCH ×3 (04:23→21:43)
[2023-03-08] MEDS: MIDODRINE 5 MG TAB PO SCH ×3 (04:24→21:00)
--- NOTE | 2023-03-08 04:24 | NUR ---
SCHEDULED MEDICATIONS GIVEN ORDERED. PATIENT IN NO SIGNS OF ACUTE DISTRESS. NO C/O PAIN. CALL LIGHT WITHIN REACH.
[2023-03-08 07:04] LABS: BASOPHILS # (AUTO) 0.1 K/uL (0.00-0.22); BASOPHILS % (AUTO) 1.2 % (0.0-2.0); EOSINOPHILS # (AUTO) 0.1 K/uL (0-0.4); EOSINOPHILS % (AUTO) 1.7 % (0.0-4.0); HEMOGLOBIN 11.7 g/dL (12.0-18.0); LYMPHOCYTES # (AUTO) 1.6 K/uL (2.0-11.5); LYMPHOCYTES % (AUTO) 19.6 % (20.5-51.1); MEAN CORPUSCULAR HEMOGLOBIN 23 pg (27-31); MEAN CORPUSCULAR HGB CONC 31 g/dL (33-37); MEAN CORPUSCULAR VOLUME 74.5 fL (80-94); MONOCYTES # (AUTO) 1.1 K/uL (0.8-1.0); MONOCYTES % (AUTO) 13.9 % (1.7-9.3); NEUTROPHILS # (AUTO) 5.2 K/uL (1.8-7.7); NEUTROPHILS % (AUTO) 63.6 % (42.2-75.2); PLATELET COUNT (AUTO) 300 K/uL (140-450); RED BLOOD CELL COUNT(AUTO) 5.09 MIL/uL (4.20-6.10); RED CELL DISTRIBUTION WIDTH 21.5 % (11.6-13.7); WHITE BLOOD COUNT (AUTO) 8.2 K/uL (4.8-10.8)
[2023-03-08 07:11] LABS: ANION GAP 14.6 (8-16); CARBON DIOXIDE 24.7 mmol/L (21-32); CREATININE 1.3 mg/dL (0.6-1.3); POTASSIUM 3.3 mmol/L (3.5-5.1)
--- NOTE | 2023-03-08 07:11 | NUR ---
ENDORSED PATIENT TO DAY NURSE FOR CONTINUITY OF CARE. PATIENT IN STABLE CONDITION.
--- NOTE | 2023-03-08 07:15 | NUR ---
RECEIVED PATIENT FROM PM NURSE. SEEN PATIENT ASLEEP ON BED WITH BILATERAL RISE AND FALL OF CHEST. PATIENT CARE PLAN STARTED. MONITORING RESUMED.
[2023-03-08 08:00] VITALS: BP 100/62
[2023-03-08] MEDS: PANTOPRAZOLE 40 MG TABEC PO SCH (09:46)
[2023-03-08] MEDS: APIXABAN 2.5 MG TAB PO SCH ×2 (09:46→21:47)
[2023-03-08] MEDS: levETIRAcetam 500 MG TAB PO SCH ×2 (09:46→21:44)
[2023-03-08] MEDS: acetaZOLAMIDE sodium 500 MG VIAL IVP SCH (09:49)
[2023-03-08 12:00] VITALS: BP 117/75
--- NOTE | 2023-03-08 12:00 | NUR ---
PATIENT ASKED FOR TWO URINALS, DUE TO OVERFLOW OF URINE. PATINET STABLE, NORMAL VITAL SIGNS.
--- NOTE | 2023-03-08 14:00 | NUR ---
03/08/23 RD INITIAL ASSESSMENT COMPLETED PLEASE REFER TO NUTRITION ASSESSMENT UNDER CARE ACTIVITY FOR ESTIMATED NUTRITIONAL NEEDS. 1. CONTINUE CARDIAC DIET TOLERATED 2. MONITOR PO INTAKE AND NUTRITION RELATED LAB VALUES 3. RD TO FOLLOW-UP 7 DAYS, LOW RISK REVIEWED BY ZACHARIAH OLIVEROS RD
[2023-03-08 16:00] VITALS: BP 124/66
--- NOTE | 2023-03-08 19:20 | NUR ---
ENDORSED PATIENT TO PM SHIFT NURSE FOR CONTINUATION OF CARE.
[2023-03-08 20:00] VITALS: BP 129/66
--- NOTE | 2023-03-08 21:00 | NUR ---
PROAMATINE IS NOT ADMINISTERED DUE TO BP 129/72, P72. PT IS ON STABLE CONDITION. AWAKE, ALERT AND VERBAL NEEDS.
[2023-03-08] MEDS: ZOLPIDEM 5 MG TAB PO PRN (21:50)
[2023-03-09] VITALS: BP 122/72
--- NOTE | 2023-03-09 00:30 | NUR ---
PT IS SLEEPING WELL.
--- NOTE | 2023-03-09 02:00 | NUR ---
PT IS ASLEEP, NO SOB OR DISTRESS.
[2023-03-09 04:00] VITALS: BP 140/87
[2023-03-09] MEDS: FUROSEMIDE 40 MG/4 ML VIAL IVP SCH (05:00)
[2023-03-09] MEDS: MIDODRINE 5 MG TAB PO SCH (05:00)
--- NOTE | 2023-03-09 05:00 | NUR ---
NON ADMINISTER PROAMATINE DUE PT BP IS ELEVATED 140/87, P93
--- NOTE | 2023-03-09 07:25 | NUR ---
RECEIVED PT FROM NIGHT RN, PT IS AWAKE, ALERT AND ORIENTED, ON ROOM AIR, LYING ON THE BED WITH SIDE RAILS UP AND CALL LIGHT WITHIN REACH, PT HAS IV LINE ON THE LEFT FOREARM G. 20 ON SALINE LOCK, NO SIGN OF DISTRESS NOTED AND WILL CONTINUE OT MONITOR PT.
[2023-03-09 07:27] LABS: BASOPHILS # (AUTO) 0.1 K/uL (0.00-0.22); BASOPHILS % (AUTO) 1.5 % (0.0-2.0); EOSINOPHILS # (AUTO) 0.2 K/uL (0-0.4); EOSINOPHILS % (AUTO) 2.6 % (0.0-4.0); HEMATOCRIT 37.4 % (36-52); HEMOGLOBIN 11.5 g/dL (12.0-18.0); LYMPHOCYTES # (AUTO) 1.2 K/uL (2.0-11.5); LYMPHOCYTES % (AUTO) 18.7 % (20.5-51.1); MEAN CORPUSCULAR HEMOGLOBIN 23 pg (27-31); MEAN CORPUSCULAR HGB CONC 31 g/dL (33-37); MEAN CORPUSCULAR VOLUME 74.5 fL (80-94); MONOCYTES # (AUTO) 0.9 K/uL (0.8-1.0); NEUTROPHILS # (AUTO) 4.2 K/uL (1.8-7.7); NEUTROPHILS % (AUTO) 64.2 % (42.2-75.2); PLATELET COUNT (AUTO) 313 K/uL (140-450); RED BLOOD CELL COUNT(AUTO) 5.03 MIL/uL (4.20-6.10); RED CELL DISTRIBUTION WIDTH 21.7 % (11.6-13.7); WHITE BLOOD COUNT (AUTO) 6.5 K/uL (4.8-10.8)
[2023-03-09 07:56] LABS: ANION GAP 13.8 (8-16); CARBON DIOXIDE 22.1 mmol/L (21-32); CREATININE 1.3 mg/dL (0.6-1.3); POTASSIUM 3.9 mmol/L (3.5-5.1)
[2023-03-09 08:00] VITALS: BP 125/95
[2023-03-09] MEDS ORDERED: METO-748 PO (09:08)
[2023-03-09] MEDS ORDERED: LOSA100T2 PO (09:08)
[2023-03-09] MEDS ORDERED: DIA250 PO (09:08)
[2023-03-09] MEDS ORDERED: KEP500 PO (09:08)
[2023-03-09] MEDS ORDERED: FURO-570 PO (09:08)
[2023-03-09] MEDS: PANTOPRAZOLE 40 MG TABEC PO SCH (09:15)
[2023-03-09] MEDS: levETIRAcetam 500 MG TAB PO SCH (09:16)
[2023-03-09] MEDS: APIXABAN 2.5 MG TAB PO SCH (09:16)
[2023-03-09] MEDS: acetaZOLAMIDE sodium 500 MG VIAL IVP SCH (09:19)
[2023-03-09 11:46] VITALS: BP 114/65
--- NOTE | 2023-03-09 13:03 | NUR ---
DISCHARGED PT TO HOME ACCOMPANIED BY JORGE ALBERTO BARREL COATER, DISCHARGED INSTRUCTION WAS GIVEN TO PT AND VERBALIZED UNDERSTANDING, IV LINE REMOVED AND PT IS STABLE AT THIS TIME.
--- NOTE | 2023-03-17 09:22 | NUR ---
CALLED [facility] LOCATED AT [address] [facility] [id number]. SPOKE WITH DACIA WHO WAS ABLE TO PROVIDE ME WITH THE CLOSEST FOLLOW UP APPOINTMENT FOR 03/20/2023 AT 1520. CALLED PATIENT WHO IS AWARE OF THE ABOVE INFORMATION.
== END 2023-03-09 12:37 | disposition home or self-care (01) | DRG 194 ==
LOC: MED 07:42 → MTU 11:07
PROVIDERS: ADMIT Family Medicine; ATTEND Family Medicine
DX: I11.0 Hypertensive heart disease with heart failure (principal); J96.01 Acute respiratory failure with hypoxia; G93.41 Metabolic encephalopathy; I42.7 Cardiomyopathy due to drug and external agent; R65.10 Systemic inflammatory response syndrome (SIRS) of non-infectious origin without acute organ dysfunction; I48.91 Unspecified atrial fibrillation; I50.43 Acute on chronic combined systolic (congestive) and diastolic (congestive) heart failure; G40.909 Epilepsy, unspecified, not intractable, without status epilepticus; F15.10 Other stimulant abuse, uncomplicated; T43.655A Adverse effect of methamphetamines, initial encounter; Z20.822 Contact with and (suspected) exposure to COVID-19
CPT/HCPCS: 36415; 71045; 80048; 80053; 80305; 81003; 82150; 83036; 83690; 83735; 83880; 84100; 84436; 84439; 84443; 84479; 84484; 85025; 85610; 85730; 87081; 96374; 96375; 99291; J1120; J1940; J2270; J3490; Q0092

== ENCOUNTER 2023-03-17 03:50 | Emergency (ER) | payer MEDICAID ==
[~2023-03-17] VITALS: Ht 188 cm; Wt 90.7 kg
[~2023-03-17 03:50] MED LIST changes: +DIA250 PO
[2023-03-17 03:53] VITALS: BP 120/84
--- NOTE | 2023-03-17 04:02 | NUR ---
PT TAKEN TO BED 5
--- NOTE | 2023-03-17 04:30 | NUR ---
28 y/o m presents with chest pain and sob x3days and L side flank pain. pt stated he uses drugs and used meth x1 week ago. pt is a&ox4, skin intact. pmh-CHF, seizures, HTN nka meds-losartan, keppra, lasix, metroplol, prilosec, eliquis
--- NOTE | 2023-03-17 04:37 | NUR ---
Dr. Juan examining patient.
[2023-03-17] MEDS ORDERED: ACETAMINOPHEN EXTRA STRENGTH 500 MG TAB PO ONE (04:40)
[2023-03-17] MEDS ORDERED: LORazepam 0.5 MG TAB PO ONE (04:40)
[2023-03-17 05:26] LABS: BASOPHILS # (AUTO) 0.1 K/uL (0.00-0.22); BASOPHILS % (AUTO) 1.3 % (0.0-2.0); EOSINOPHILS # (AUTO) 0.1 K/uL (0-0.4); EOSINOPHILS % (AUTO) 1.6 % (0.0-4.0); HEMATOCRIT 36.7 % (36-52); HEMOGLOBIN 11.3 g/dL (12.0-18.0); LYMPHOCYTES # (AUTO) 1.9 K/uL (2.0-11.5); LYMPHOCYTES % (AUTO) 26.9 % (20.5-51.1); MEAN CORPUSCULAR HEMOGLOBIN 23 pg (27-31); MEAN CORPUSCULAR HGB CONC 31 g/dL (33-37); MEAN CORPUSCULAR VOLUME 75.2 fL (80-94); MONOCYTES # (AUTO) 0.9 K/uL (0.8-1.0); MONOCYTES % (AUTO) 13.1 % (1.7-9.3); NEUTROPHILS % (AUTO) 57.1 % (42.2-75.2); PLATELET COUNT (AUTO) 378 K/uL (140-450); RED BLOOD CELL COUNT(AUTO) 4.88 MIL/uL (4.20-6.10)
[2023-03-17 05:39] LABS: ALBUMIN 3.1 g/dL (3.4-5.0); ANION GAP 13.6 (8-16); CARBON DIOXIDE 21.1 mmol/L (21-32); CREATININE 1.3 mg/dL (0.6-1.3); POTASSIUM 3.7 mmol/L (3.5-5.1); TOTAL BILIRUBIN 1.5 mg/dL (0.0-1.0)
[2023-03-17] MEDS ORDERED: ACET-2214 PO (05:53)
[2023-03-17] MEDS ORDERED: FAMO-90 PO (05:53)
--- NOTE | 2023-03-17 06:15 | NUR ---
Patient discharged with v/s stable. Written and verbal after care instructions given and explained. Patient alert, oriented and verbalized understanding of instructions. Ambulatory with steady gait. All questions addressed prior to discharge. ID band removed. Patient advised to follow up with PMD. Rx of acetaminophen and pepcid given. Opportunity to ask questions provided and answered.
--- NOTE | 2023-03-17 06:21 | NUR ---
The patient's care was reviewed and supervised by Barbara Flores RN.
== END 2023-03-17 06:15 | disposition home or self-care (01) ==
LOC: MED 03:50
DX: I11.0 Hypertensive heart disease with heart failure (principal); I50.9 Heart failure, unspecified; R07.9 Chest pain, unspecified; F15.90 Other stimulant use, unspecified, uncomplicated; I48.91 Unspecified atrial fibrillation; Z86.69 Personal history of other diseases of the nervous system and sense organs; Z79.899 Other long term (current) drug therapy
CPT/HCPCS: 36415; 71045; 80053; 83880; 84484; 85025; 93005; 99285; Q0092

== ENCOUNTER 2023-03-23 19:29 | Inpatient (IN) | payer MEDICAID ==
[~2023-03-23] VITALS: Ht 188 cm; Wt 104.3 kg
[~2023-03-23 19:29] MED LIST changes: +ACET-2214 PO; +FAMO-90 PO
[2023-03-23 19:40] VITALS: BP 123/79
--- NOTE | 2023-03-23 20:11 | NUR ---
PT BROUGHT TO BED 8 VIA WHEELCHAIR
[2023-03-23 20:29] LABS: BASOPHILS % (AUTO) 0.4 % (0.0-2.0); EOSINOPHILS # (AUTO) 0.1 K/uL (0-0.4); EOSINOPHILS % (AUTO) 0.8 % (0.0-4.0); HEMATOCRIT 36.6 % (36-52); HEMOGLOBIN 11.4 g/dL (12.0-18.0); LYMPHOCYTES # (AUTO) 1.5 K/uL (2.0-11.5); LYMPHOCYTES % (AUTO) 23.4 % (20.5-51.1); MEAN CORPUSCULAR HEMOGLOBIN 23 pg (27-31); MEAN CORPUSCULAR HGB CONC 31 g/dL (33-37); MEAN CORPUSCULAR VOLUME 74.2 fL (80-94); MONOCYTES # (AUTO) 0.8 K/uL (0.8-1.0); MONOCYTES % (AUTO) 12.7 % (1.7-9.3); NEUTROPHILS # (AUTO) 3.9 K/uL (1.8-7.7); NEUTROPHILS % (AUTO) 62.7 % (42.2-75.2); PLATELET COUNT (AUTO) 415 K/uL (140-450); RED BLOOD CELL COUNT(AUTO) 4.93 MIL/uL (4.20-6.10); RED CELL DISTRIBUTION WIDTH 22.7 % (11.6-13.7); WHITE BLOOD COUNT (AUTO) 6.2 K/uL (4.8-10.8)
--- NOTE | 2023-03-23 20:36 | NUR ---
28YR OLD MALE BIB FAMILY C/O CP AND SOB. 5/10 SHARP LEFT SIDED CP . PT IS SOB HX OF CHF SP02 96% RA. HOB IS ELEVATED. PT FAMILY MEMEBER STATES MEDICATION WAS ACCIDENTIALY THROW AWAY BY HOSPITAL DURING LAST ER VISIT. HX OF CHF CVA SZ . PT IS A&OX4 ON BEDSIDE LIFELINE REPRESENTATIVES. SKIN WARM AND DRY. PT STATES HAVING BEEN VOMITING SINCE YESTERDAY. SINUS TACHYCARDIAC ON MONITOR 146. 20G IV CATH PLACED IN R AC. FAMILY AT BEDSIDE NKDA' CHF CVA SZ
[2023-03-23] MEDS ORDERED: HYDROcodone/APAP 5/325 MG 1 TAB TAB ONE (20:40)
[2023-03-23 20:41] LABS: PROTHROMBIN TIME 17.8 secs (10.8-13.4)
[2023-03-23 20:47] LABS: ALBUMIN 3.4 g/dL (3.4-5.0); ANION GAP 15.9 (8-16); CARBON DIOXIDE 21.9 mmol/L (21-32); CREATININE 1.3 mg/dL (0.6-1.3); POTASSIUM 4.8 mmol/L (3.5-5.1); TOTAL BILIRUBIN 3.3 mg/dL (0.0-1.0)
[2023-03-23 20:49] LABS: MAGNESIUM 2.1 mg/dL (1.8-2.4); PHOSPHORUS 5.9 mg/dL (2.5-4.9)
[2023-03-23] MEDS ORDERED: METOPROLOL 5 MG/5 ML VIAL IVP ONE (21:00)
[2023-03-23] MEDS ORDERED: NITROGLYCERIN 0.4 MG TAB SL ONE (21:35)
[2023-03-23] MEDS ORDERED: FUROSEMIDE 40 MG/4 ML VIAL IVP ONE (21:35)
[2023-03-23] MEDS ORDERED: NITROGLYCERIN 0.1 MG/HR PATCH TD SCH (21:45)
[2023-03-23] MEDS ORDERED: ASPIRIN 81 MG TAB.CHEW PO ONE (22:25)
[2023-03-23] MEDS ORDERED: HYDROcodone/APAP 5/325 MG 1 TAB TAB PO PRN (22:35)
[2023-03-23] MEDS ORDERED: ACETAMINOPHEN 325 MG TAB PO PRN (22:35)
[2023-03-23] MEDS ORDERED: METOPROLOL 5 MG/5 ML VIAL IVP PRN (22:40)
--- NOTE | 2023-03-23 23:00 | NUR ---
PT TO BE ADMITED TO HOSPITAL . TELE HOLD. PT AWARE. COVID SWAB COLLECTED AND SENT TO LAB;
--- NOTE | 2023-03-23 23:12 | NUR ---
BELONGINGS AND MED RECONCILE COMPLETED
[2023-03-23] MEDS ORDERED: MORPHINE SULFATE 4 MG/ML SYR IVP ONE (23:15)
[2023-03-23 23:56] LABS: BARBITURATE, URINE NEGATIVE ng/ml (NEG <=200); BENZODIAZEPINE, URINE NEGATIVE ng/mL (NEG <=200); CANNABINOID, URINE NEGATIVE ng/mL (NEG <=50); COCAINE, URINE NEGATIVE ng/mL (NEG <=300); OPIATE, URINE NEGATIVE ng/mL (NEG <=2000); PHENCYCLIDINE SCREEN,URINE NEGATIVE ng/mL (NEG <=25)
--- NOTE | 2023-03-24 04:17 | NUR ---
PT SLEEPING RESP EVEN AND UNLABORED. SP02 93% 3L NC. HOB ELEVATED. ON BEDSIDE MONTIOR. VS WNL
[2023-03-24] MEDS: HYDROcodone/APAP 5/325 MG 1 TAB TAB PO PRN ×2 (06:37→16:57)
--- NOTE | 2023-03-24 07:20 | NUR ---
Report recieved from TORREY Lorenzo for transfer of care.
--- NOTE | 2023-03-24 07:42 | NUR ---
Patient was given breakfast tray, patient is sitting up eating breakfast.
--- NOTE | 2023-03-24 08:10 | NUR ---
Patient will be admitted to care of Dr. Acosta. Admited to Telemetry. Will go to room 111-A. Belongings list completed. Report to BETH Espinoza.
--- NOTE | 2023-03-24 08:25 | NUR ---
RECEIVE ER NURSE REPORT THAT 28YR. OLDER MALE PATIENT COME FORM HOME FOR CHEST PAIN X 2 DAYS W/ SOB, NAUSEA/VOMIT. PATIENT DIAGNOSIS WITH CHF W/ HX OF HTN, CHF, SEIZURE, CVA. PATIENT HAS NKA, FULL CODE, ABLE TO AMBULATORY; ADMIT UNDER CARE OF DR. BRUNER WITH DR. LOVETT FOR CARDIOLOGY CONSULT. PATIENT ALERT X3 TO 4, TEL MONITOR SHOWS A. FIB. ON ROOM AIR, CARDIAC DIET, RAC 20G PIV SALINE LOOCK D/T STRICT I&O 2/2 CHF. VITAL WITHIN PATIENT'S BASELINE (T-P-R: 96.4-56-20, BP: 125/80, O2 SAT: 94%). WILL CONTINUE TO MONITOR
--- NOTE | 2023-03-24 08:51 | NUR ---
The patient's care was reviewed and supervised by ED Agency Nurse 7, RN, RN.
[2023-03-24] MEDS ORDERED: FUROSEMIDE 40 MG/4 ML VIAL IVP SCH (09:00)
[2023-03-24] MEDS ORDERED: ENOXAPARIN 40 MG/0.4 ML SYR SUBQ SCH (09:00)
--- NOTE | 2023-03-24 09:22 | NUR ---
Patient has been screened and categorized as moderate risk patient will be seen in 3-[address]
[2023-03-24] MEDS: lisinopriL 10 MG TAB PO SCH (10:01)
[2023-03-24] MEDS: SPIRONOLACTONE 25 MG TAB PO SCH (10:01)
[2023-03-24] MEDS: carvediloL 3.125 MG TAB PO SCH ×2 (10:01→23:17)
[2023-03-24 12:00] VITALS: BP 108/86
--- NOTE | 2023-03-24 14:33 | NUR ---
DC PLANNING ASSESSMENT COMPLETE PLEASE REFER TO ASSESSMENT FOR ADDITIONAL DETAILS PT IS A 28 YR OLD MALE ADMITTED TO [facility] FROM HOME WITH DX OF CHF. PT REPORTS SUBSTANCE USE HX PRIMARILY METH USE. PT REPORTS USE SPANNING OVER 2YRS . PT REPORTS LAST USE 3 WEEKS AGO. APOLINAR PROVIDED PT WITH PSYCHOEDUCATION ON GROUP HOME METH USE AND HEALTH IMPLICATIONS, PT RECEPTIVE HOWEVER, DECLINED SUBSTANCE USE RESOURCES OFFERED BY APOLINAR. PT REPORTS DC PLAN IS TO RETURN HOME WITH FAMILY PROVIDING TRANSPORTATION, WHEN MEDICALLY STABLE. Addendum: 03/24/23 at 1434 by Rashmi MACHADO Amended: Links added.
[2023-03-24 14:50] LABS: ALBUMIN 2.9 g/dL (3.4-5.0); ANION GAP 13.4 (8-16); CARBON DIOXIDE 23.8 mmol/L (21-32); CREATININE 1.2 mg/dL (0.6-1.3); MAGNESIUM 1.6 mg/dL (1.8-2.4); PHOSPHORUS 5.5 mg/dL (2.5-4.9); POTASSIUM 3.2 mmol/L (3.5-5.1); TOTAL BILIRUBIN 2.5 mg/dL (0.0-1.0)
[2023-03-24 14:51] LABS: BASOPHILS # (AUTO) 0.1 K/uL (0.00-0.22); BASOPHILS % (AUTO) 1.3 % (0.0-2.0); EOSINOPHILS # (AUTO) 0.1 K/uL (0-0.4); EOSINOPHILS % (AUTO) 1.5 % (0.0-4.0); HEMATOCRIT 34.3 % (36-52); HEMOGLOBIN 10.5 g/dL (12.0-18.0); LYMPHOCYTES # (AUTO) 1.1 K/uL (2.0-11.5); LYMPHOCYTES % (AUTO) 18.4 % (20.5-51.1); MEAN CORPUSCULAR HEMOGLOBIN 23 pg (27-31); MEAN CORPUSCULAR HGB CONC 31 g/dL (33-37); MEAN CORPUSCULAR VOLUME 74.3 fL (80-94); MONOCYTES # (AUTO) 0.8 K/uL (0.8-1.0); MONOCYTES % (AUTO) 12.6 % (1.7-9.3); NEUTROPHILS # (AUTO) 3.9 K/uL (1.8-7.7); NEUTROPHILS % (AUTO) 66.2 % (42.2-75.2); PLATELET COUNT (AUTO) 332 K/uL (140-450); RED BLOOD CELL COUNT(AUTO) 4.61 MIL/uL (4.20-6.10); RED CELL DISTRIBUTION WIDTH 22.4 % (11.6-13.7)
--- NOTE | 2023-03-24 15:01 | NUR ---
CALLED [facility] LOCATED AT [address] [facility] [id number]. SPOKE WITH KANDACE WHO WAS ABLE TO HELP ME SCHEDULE AN APPOINTMENT FOR 04/01/2023 AT 0900. WENT TO BEDSIDE AND INFORMED PATIENT AND GAVE APPOINTMENT SLIP.
[2023-03-24 16:00] VITALS: BP 99/60
--- NOTE | 2023-03-24 16:14 | NUR ---
A 28 YEAR OLD MALE PATIENT ADMITTED FOR EVALUATION OF CHEST PAIN,SOB ,NAUSEA AND VOMITING X 2 DAYS FILTER WASHER.WITH HX OF HTN,CHF AND SEIZURE DISORDER.HX OF BRUG ABUSE (METHAMPHETAMINE).CXR SHOWS CARDIOMEGALY.PREVIOUS EF IS <10%.CARDIO ON BOARD FOR A.FIB/RVR.DC PLAN - HOME WHEN PATIENT RESPONDS TO TX.CM TO FOLLOW.
[2023-03-24] MEDS ORDERED: MAG SULF 2000 MG/WATER PREMIX 50 ML IV SCH (16:28)
[2023-03-24] MEDS ORDERED: POTASSIUM CHLORIDE 10 MEQ TABER PO SCH (16:29)
--- NOTE | 2023-03-24 19:29 | NUR ---
ENDORSE PATIENT IN STABLE CONDITION TO PM SHIFT NURSE AFTER MAG. RIDER COMPLETE. PATIENT COME FOR CHF EXACERBATION, UI PROGRAMMER ALREADY SAW PATIENT
--- NOTE | 2023-03-24 19:48 | NUR ---
SERUM MAGNESIUM , K + LOW - MG RIDER , K DUR GIVEN BY AM SHIFT NURSE .
[2023-03-24 20:00] VITALS: BP 124/62
--- NOTE | 2023-03-24 23:00 | NUR ---
ROUNDS , BP 127 / 65 , AR 78 , RR 20 , O2 SAT 95 %
[2023-03-24] MEDS: APIXABAN 2.5 MG TAB PO SCH (23:17)
[2023-03-24] MEDS: FUROSEMIDE 40 MG/4 ML VIAL IVP SCH (23:27)
[2023-03-25] VITALS (7 sets, daily range): BP systolic 109–122; BP diastolic 65–89
--- NOTE | 2023-03-25 04:00 | NUR ---
rounds , no s/sx of acute distress noted .
--- NOTE | 2023-03-25 07:05 | NUR ---
bp re check 120 / 84 - hr 99
[2023-03-25] MEDS: FUROSEMIDE 40 MG/4 ML VIAL IVP SCH ×2 (07:11→13:22)
--- NOTE | 2023-03-25 07:35 | NUR ---
ENDORSED PT FOR CONT. OF CARE , AWAKE .
--- NOTE | 2023-03-25 07:36 | NUR ---
RECEIVED ENDORSEMENT FROM DEVOPS NURSE FOR CONTINUITY OF CARE.. PT IS AWAKE AND ORIENTED. REINFORCED SAFETY MEASURES. CALL LIGHT WITHIN REACH.
[2023-03-25] MEDS: lisinopriL 10 MG TAB PO SCH (08:54)
[2023-03-25] MEDS: SPIRONOLACTONE 25 MG TAB PO SCH (08:54)
[2023-03-25] MEDS: APIXABAN 2.5 MG TAB PO SCH (08:57)
[2023-03-25] MEDS: carvediloL 3.125 MG TAB PO SCH (08:57)
[2023-03-25] MEDS ORDERED: SPIR50TA PO (09:32)
[2023-03-25] MEDS ORDERED: CARV3.12 PO (09:32)
[2023-03-25] MEDS ORDERED: FURO-570 PO (09:32)
[2023-03-25] MEDS ORDERED: APIX5TAB PO (09:32)
[2023-03-25] MEDS ORDERED: POTASSIUM CHLORIDE 10 MEQ TABER PO SCH (10:30)
[2023-03-25] MEDS ORDERED: MAGNESIUM OXIDE 400 MG TAB PO SCH (10:30)
[2023-03-25] MEDS ORDERED: FUROSEMIDE 40 MG/4 ML VIAL IVP SCH (17:00)
== END 2023-03-25 15:08 | disposition home or self-care (01) | DRG 194 ==
LOC: MED 19:29 → MTU 22:40
PROVIDERS: ADMIT Internal Medicine; ATTEND Internal Medicine
DX: I11.0 Hypertensive heart disease with heart failure (principal); J96.00 Acute respiratory failure, unspecified whether with hypoxia or hypercapnia; E44.1 Mild protein-calorie malnutrition; I42.0 Dilated cardiomyopathy; I48.20 Chronic atrial fibrillation, unspecified; D50.9 Iron deficiency anemia, unspecified; F15.10 Other stimulant abuse, uncomplicated; G40.909 Epilepsy, unspecified, not intractable, without status epilepticus; I50.43 Acute on chronic combined systolic (congestive) and diastolic (congestive) heart failure; Z20.822 Contact with and (suspected) exposure to COVID-19; E78.5 Hyperlipidemia, unspecified; Z79.899 Other long term (current) drug therapy; Z91.199 Patient's noncompliance with other medical treatment and regimen due to unspecified reason; Z79.01 Long term (current) use of anticoagulants; Z68.29 Body mass index [BMI] 29.0-29.9, adult
CPT/HCPCS: 36415; 71045; 80053; 80305; 83735; 83880; 84100; 84484; 85025; 85610; 85730; 87081; 96374; 96375; 99285; J1650; J1940; J2270; J3475; J3490; Q0092

== ENCOUNTER 2023-11-30 17:51 | Inpatient (IN) | payer MEDICAID ==
[~2023-11-30] VITALS: Ht 188 cm; Wt 113.4 kg
[~2023-11-30 17:51] MED LIST changes: +APIX5TAB PO; +CARV3.12 PO; +LOSA-272 PO; -LOSA100T2 PO; -METO-748 PO; +SPIR50TA PO
[2023-11-30 18:18] VITALS: BP 137/120; PULSE 52; RESP 22; TEMP 98; O2SAT 98
[2023-11-30] MEDS ORDERED: APIXABAN 2.5 MG TAB PO STA (19:04)
[2023-11-30] MEDS ORDERED: METOPROLOL 5 MG/5 ML VIAL IVP ONE ×3 (19:05→20:00)
[2023-11-30 19:08] LABS: BASOPHILS # (AUTO) 0.1 K/uL (0.00-0.22); BASOPHILS % (AUTO) 1.1 % (0.0-2.0); EOSINOPHILS # (AUTO) 0.2 K/uL (0-0.4); EOSINOPHILS % (AUTO) 1.5 % (0.0-4.0); HEMATOCRIT 46.5 % (36-52); HEMOGLOBIN 15.3 g/dL (12.0-18.0); LYMPHOCYTES % (AUTO) 28.9 % (20.5-51.1); MEAN CORPUSCULAR HEMOGLOBIN 27 pg (27-31); MEAN CORPUSCULAR HGB CONC 33 g/dL (33-37); MEAN CORPUSCULAR VOLUME 80.2 fL (80-94); MONOCYTES # (AUTO) 1.1 K/uL (0.8-1.0); MONOCYTES % (AUTO) 10.3 % (1.7-9.3); NEUTROPHILS % (AUTO) 58.2 % (42.2-75.2); PLATELET COUNT (AUTO) 439 K/uL (140-450); WHITE BLOOD COUNT (AUTO) 10.3 K/uL (4.8-10.8)
[2023-11-30] MEDS ORDERED: METOPROLOL SUCCINATE 50 MG TABER PO ONE (19:14)
[2023-11-30 19:21] LABS: ANION GAP 15.2 (8-16); CALCIUM 9.5 mg/dL (8.5-10.1); POTASSIUM 4.2 mmol/L (3.5-5.1)
[2023-11-30 19:25] LABS: INR 1.13 (0.8-1.2); PARTIAL THROMBOPLASTIN TIME 28.9 secs (22-35.6); PROTHROMBIN TIME 11.8 secs (10.8-13.4)
[2023-11-30] MEDS: METOPROLOL SUCCINATE 50 MG TABER PO SCH (19:27)
[2023-11-30 19:30] LABS: ALANINE AMINOTRANSFERASE 32 U/L (12-78); ALBUMIN 3.9 g/dL (3.4-5.0); ALKALINE PHOSPHATASE 94 U/L (50-136); ASPARTATE AMINOTRANSFERASE 41 U/L (15-37); BILIRUBIN,DIRECT 0.1 mg/dL (0.0-0.3); TOTAL BILIRUBIN 1.2 mg/dL (0.0-1.0); TOTAL PROTEIN, SERUM 9.6 g/dL (6.4-8.2)
[2023-11-30 20:08] LABS: APPEARANCE,URINE CLEAR (CLEAR); BILIRUBIN,URINE NEGATIVE (NEGATIVE); BLOOD, URINE NEGATIVE (NEGATIVE); COLOR,URINE YELLOW (YELLOW); LEUKOCYTE ESTERASE ,URINE NEGATIVE (NEGATIVE); NITRITE, URINE NEGATIVE (NEGATIVE); PH,URINE 5.5 (5.0-9.0); PROTEIN,URINE 2+ (NEGATIVE); UGLUCOSE NEGATIVE (NEGATIVE); UROBILINOGEN,URINE 0.2 EU/dL (0.2 - 1)
[2023-11-30] MEDS ORDERED: ASPIRIN 81 MG TAB.CHEW PO ONE (20:25)
[2023-11-30] MEDS ORDERED: ONDANSETRON 4 MG/2 ML VIAL IVP ONE (20:25)
[2023-11-30] MEDS ORDERED: MORPHINE SULFATE 4 MG/ML SYR IVP ONE (20:25)
[2023-11-30] MEDS ORDERED: NITROGLYCERIN 0.4 MG TAB SL ONE (20:25)
[2023-11-30 20:36] LABS: AMPHETAMINE, URINE NEGATIVE ng/ml (NEG <=1000); BARBITURATE, URINE NEGATIVE ng/ml (NEG <=200); BENZODIAZEPINE, URINE NEGATIVE ng/mL (NEG <=200); CANNABINOID, URINE POSITIVE ng/mL (NEG <=50); COCAINE, URINE NEGATIVE ng/mL (NEG <=300); OPIATE, URINE POSITIVE ng/mL (NEG <=2000); PHENCYCLIDINE SCREEN,URINE NEGATIVE ng/mL (NEG <=25)
[2023-11-30 20:38] LABS: RBC,URINE 0 /HPF (0-5)
[2023-11-30 20:41] LABS: BACTERIA,URINE 0-2 /HPF (None Seen); MUCUS,URINE 2+ /LPF (None Seen); SQUAMOUS EPITHELIAL CELL,UR 0-3 (FEW) /LPF (0-3 (FEW)); WBC,URINE 0-5 /HPF (0-5)
[2023-11-30] MEDS ORDERED: PANT40GR PO (20:52)
[2023-11-30] MEDS ORDERED: SACU1TAB PO (20:52)
[2023-11-30] MEDS ORDERED: METO25TE71 PO (20:52)
[2023-11-30] MEDS ORDERED: LEVE-1 PO (20:52)
[2023-11-30] MEDS ORDERED: FURO40TA9 PO (20:52)
[2023-11-30] MEDS ORDERED: APIX2.5 PO (20:52)
[2023-11-30] MEDS ORDERED: DULO30EC68 PO (20:52)
[2023-11-30] MEDS ORDERED: SPIR25TA20 PO (20:52)
[2023-11-30] MEDS ORDERED: QUET100T44 PO (20:52)
[2023-11-30] MEDS ORDERED: ASPIRIN 81 MG TAB.CHEW PO SCH (21:10)
[2023-11-30] MEDS ORDERED: NITROGLYCERIN 0.4 MG TAB SL PRN (21:10)
[2023-11-30] MEDS ORDERED: LORazepam 1 MG TAB PO PRN (21:10)
[2023-11-30] MEDS ORDERED: FAMOTIDINE 20 MG TAB PO PRN (21:10)
[2023-11-30] MEDS ORDERED: ZOLPIDEM 5 MG TAB PO PRN (21:10)
[2023-11-30] MEDS ORDERED: ALUMINUM HYD/MAG/SIMETHICONE 30 ML UDC PO PRN (21:10)
[2023-11-30] MEDS ORDERED: ONDANSETRON 4 MG/2 ML VIAL IVP PRN (21:10)
[2023-11-30] MEDS ORDERED: HYDROcodone/APAP 5/325 MG 1 TAB TAB PO PRN (21:10)
[2023-11-30] MEDS ORDERED: ACETAMINOPHEN 325 MG TAB PO PRN (21:10)
[2023-11-30 22:30] LABS: CHOL/HDL RATIO 5.1 (1-4.5)
[2023-11-30 23:35] VITALS: BP 121/83; PULSE 96; RESP 20; TEMP 97.8; O2SAT 98
[2023-11-30 23:40] VITALS: PULSE 102
[2023-11-30 23:59] VITALS: PULSE 92
[2023-12-01] VITALS (10 sets, daily range): BP systolic 110–146; BP diastolic 58–92; PULSE 73–112; RESP 18–20; TEMP 97.2–97.9; O2SAT 98–100
[2023-12-01 05:25] LABS: BASOPHILS # (AUTO) 0.1 K/uL (0.00-0.22); BASOPHILS % (AUTO) 0.8 % (0.0-2.0); EOSINOPHILS # (AUTO) 0.1 K/uL (0-0.4); EOSINOPHILS % (AUTO) 1.6 % (0.0-4.0); HEMATOCRIT 41.9 % (36-52); HEMOGLOBIN 13.8 g/dL (12.0-18.0); LYMPHOCYTES # (AUTO) 2.8 K/uL (2.0-11.5); LYMPHOCYTES % (AUTO) 35.7 % (20.5-51.1); MEAN CORPUSCULAR HEMOGLOBIN 26 pg (27-31); MEAN CORPUSCULAR HGB CONC 33 g/dL (33-37); MONOCYTES # (AUTO) 0.9 K/uL (0.8-1.0); MONOCYTES % (AUTO) 11.7 % (1.7-9.3); NEUTROPHILS # (AUTO) 3.9 K/uL (1.8-7.7); NEUTROPHILS % (AUTO) 50.2 % (42.2-75.2); PLATELET COUNT (AUTO) 351 K/uL (140-450); RED BLOOD CELL COUNT(AUTO) 5.24 MIL/uL (4.20-6.10); RED CELL DISTRIBUTION WIDTH 15.2 % (11.6-13.7); WHITE BLOOD COUNT (AUTO) 7.8 K/uL (4.8-10.8)
[2023-12-01 06:11] LABS: ALBUMIN 3.2 g/dL (3.4-5.0); ANION GAP 15.4 (8-16); CALCIUM 8.9 mg/dL (8.5-10.1); CARBON DIOXIDE 22.3 mmol/L (21-32); CREATININE 1.2 mg/dL (0.6-1.3); POTASSIUM 4.7 mmol/L (3.5-5.1); TOTAL BILIRUBIN 1.1 mg/dL (0.0-1.0); TOTAL PROTEIN, SERUM 7.1 g/dL (6.4-8.2)
[2023-12-01] MEDS ORDERED: lisinopriL 20 MG TAB PO SCH (09:00)
[2023-12-01] MEDS ORDERED: METOPROLOL 25 MG TAB PO SCH (09:00)
[2023-12-01] MEDS: METOPROLOL SUCCINATE 50 MG TABER PO SCH (09:11)
[2023-12-01] MEDS: QUEtiapine FUMARATE 100 MG TAB PO SCH (09:12)
[2023-12-01] MEDS: SPIRONOLACTONE 50 MG TAB PO SCH (09:19)
[2023-12-01] MEDS: APIXABAN 2.5 MG TAB PO SCH ×2 (09:21→20:08)
[2023-12-01] MEDS: DULoxetine 30 MG CAPDR PO SCH (09:23)
[2023-12-01] MEDS: levETIRAcetam 500 MG TAB PO SCH ×2 (09:24→20:08)
[2023-12-01] MEDS: ASPIRIN 81 MG TAB.CHEW PO SCH (09:24)
[2023-12-01] MEDS: DOCUSATE SODIUM 100 MG GELCAP PO SCH (09:24)
[2023-12-01] MEDS: FUROSEMIDE 40 MG TAB PO SCH ×2 (09:25→20:08)
[2023-12-01] MEDS ORDERED: SIMVASTATIN 20 MG TAB PO SCH (21:00)
[2023-12-02] VITALS (7 sets, daily range): BP systolic 98–107; BP diastolic 68–87; PULSE 60–109; RESP 17–22; TEMP 97.1–98.3; O2SAT 86–100
[2023-12-02] MEDS: MORPHINE SULFATE 2 MG/ML SYR IVP PRN ×2 (00:23→17:06)
[2023-12-02 06:22] LABS: BASOPHILS # (AUTO) 0.1 K/uL (0.00-0.22); EOSINOPHILS # (AUTO) 0.1 K/uL (0-0.4); EOSINOPHILS % (AUTO) 1.4 % (0.0-4.0); HEMATOCRIT 41.1 % (36-52); HEMOGLOBIN 13.8 g/dL (12.0-18.0); LYMPHOCYTES # (AUTO) 2.2 K/uL (2.0-11.5); LYMPHOCYTES % (AUTO) 26.9 % (20.5-51.1); MEAN CORPUSCULAR HEMOGLOBIN 27 pg (27-31); MEAN CORPUSCULAR HGB CONC 34 g/dL (33-37); MEAN CORPUSCULAR VOLUME 79.1 fL (80-94); MONOCYTES # (AUTO) 0.8 K/uL (0.8-1.0); MONOCYTES % (AUTO) 9.8 % (1.7-9.3); NEUTROPHILS # (AUTO) 4.9 K/uL (1.8-7.7); NEUTROPHILS % (AUTO) 60.9 % (42.2-75.2); PLATELET COUNT (AUTO) 379 K/uL (140-450); RED BLOOD CELL COUNT(AUTO) 5.19 MIL/uL (4.20-6.10); RED CELL DISTRIBUTION WIDTH 15.2 % (11.6-13.7)
[2023-12-02 06:52] LABS: ALBUMIN 3.1 g/dL (3.4-5.0); ANION GAP 14.6 (8-16); CALCIUM 8.3 mg/dL (8.5-10.1); CARBON DIOXIDE 24.4 mmol/L (21-32); CREATININE 1.3 mg/dL (0.6-1.3); TOTAL BILIRUBIN 0.9 mg/dL (0.0-1.0); TOTAL PROTEIN, SERUM 7.8 g/dL (6.4-8.2)
[2023-12-02] MEDS ORDERED: CRUSHER, PILL MC ONE (08:42)
[2023-12-02] MEDS ORDERED: lisinopriL 5 MG TAB PO SCH (09:00)
[2023-12-02] MEDS ORDERED: METOPROLOL SUCCINATE 50 MG TABER PO SCH (09:00)
[2023-12-02] MEDS: ASPIRIN 81 MG TAB.CHEW PO SCH (09:49)
[2023-12-02] MEDS: DOCUSATE SODIUM 100 MG GELCAP PO SCH (09:49)
[2023-12-02] MEDS: DULoxetine 30 MG CAPDR PO SCH (09:49)
[2023-12-02] MEDS: FUROSEMIDE 40 MG TAB PO SCH (09:49)
[2023-12-02] MEDS: QUEtiapine FUMARATE 100 MG TAB PO SCH (09:50)
[2023-12-02] MEDS: levETIRAcetam 500 MG TAB PO SCH (09:55)
[2023-12-02] MEDS: APIXABAN 2.5 MG TAB PO SCH (09:56)
[2023-12-02] MEDS: SPIRONOLACTONE 50 MG TAB PO SCH (09:57)
[2023-12-02] MEDS ORDERED: SIMV-30 PO (11:42)
[2023-12-02] MEDS ORDERED: METO50TE2 PO (11:42)
[2023-12-02] MEDS ORDERED: SACU1TAB PO (11:44)
[2023-12-02] MEDS ORDERED: SPIR50TA PO (11:44)
[2023-12-02] MEDS ORDERED: KEP500 PO (11:44)
[2023-12-02] MEDS ORDERED: DULO30EC68 PO (11:44)
[2023-12-02] MEDS ORDERED: FURO-570 PO (11:44)
[2023-12-02] MEDS ORDERED: APIX5TAB PO (11:44)
[2023-12-02] MEDS ORDERED: DIA250 PO (11:44)
[2023-12-02] MEDS ORDERED: QUET100T44 PO (11:44)
== END 2023-12-02 20:10 | disposition home or self-care (01) | DRG 201 ==
LOC: MED 17:51 → MTU 21:21
PROVIDERS: ADMIT Family Medicine; ATTEND Family Medicine
DX: I48.91 Unspecified atrial fibrillation (principal); I21.A1 Myocardial infarction type 2; I50.23 Acute on chronic systolic (congestive) heart failure; R65.10 Systemic inflammatory response syndrome (SIRS) of non-infectious origin without acute organ dysfunction; I11.0 Hypertensive heart disease with heart failure; E11.65 Type 2 diabetes mellitus with hyperglycemia; Z79.01 Long term (current) use of anticoagulants; R74.01 Elevation of levels of liver transaminase levels; F19.10 Other psychoactive substance abuse, uncomplicated; F41.9 Anxiety disorder, unspecified; F31.9 Bipolar disorder, unspecified
CPT/HCPCS: 36415; 71045; 80048; 80053; 80076; 80305; 81001; 83036; 83880; 84484; 85025; 85610; 85730; 86886; 86900; 86901; 87081; 93005; 96374; 96375; 96376; 99285; J2270; J2405; J3490